=== PATIENT | male | born 2000 | race Caucasian/White ===

== ENCOUNTER 2023-04-19 18:13 | Emergency (ER) | payer OTHER ==
[~2023-04-19] VITALS: Ht 188 cm; Wt 81.6 kg
[2023-04-19 18:31] VITALS: BP 130/52; PULSE 54; RESP 18; TEMP 98.9; O2SAT 97
[2023-04-19 20:21] LABS: BASOPHILS % (AUTO) 0.1 % (0.0-2.0); EOSINOPHILS % (AUTO) 0.5 % (0.0-4.0); HEMATOCRIT 41.5 % (36-52); HEMOGLOBIN 13.8 g/dL (12.0-18.0); LYMPHOCYTES # (AUTO) 1.8 K/uL (2.0-11.5); LYMPHOCYTES % (AUTO) 26.2 % (20.5-51.1); MEAN CORPUSCULAR HEMOGLOBIN 29 pg (27-31); MEAN CORPUSCULAR HGB CONC 33 g/dL (33-37); MEAN CORPUSCULAR VOLUME 87.9 fL (80-94); MONOCYTES # (AUTO) 0.5 K/uL (0.8-1.0); MONOCYTES % (AUTO) 6.7 % (1.7-9.3); NEUTROPHILS # (AUTO) 4.5 K/uL (1.8-7.7); NEUTROPHILS % (AUTO) 66.5 % (42.2-75.2); PLATELET COUNT (AUTO) 235 K/uL (140-450); RED BLOOD CELL COUNT(AUTO) 4.72 MIL/uL (4.20-6.10); RED CELL DISTRIBUTION WIDTH 12.9 % (11.6-13.7); WHITE BLOOD COUNT (AUTO) 6.8 K/uL (4.8-10.8)
[2023-04-19 20:29] LABS: APPEARANCE,URINE SL CLOUDY (CLEAR); BILIRUBIN,URINE NEGATIVE (NEGATIVE); BLOOD, URINE NEGATIVE (NEGATIVE); COLOR,URINE ORANGE (YELLOW); LEUKOCYTE ESTERASE ,URINE NEGATIVE (NEGATIVE); NITRITE, URINE NEGATIVE (NEGATIVE); PROTEIN,URINE NEGATIVE (NEGATIVE); UGLUCOSE NEGATIVE (NEGATIVE); UROBILINOGEN,URINE 0.2 EU/dL (0.2 - 1)
[2023-04-19 20:35] LABS: CALCIUM 9.5 mg/dL (8.5-10.1); CARBON DIOXIDE 27.5 mmol/L (21-32); CREATININE 0.9 mg/dL (0.6-1.3); POTASSIUM 3.5 mmol/L (3.5-5.1)
[2023-04-19 20:48] LABS: ALBUMIN 4.9 g/dL (3.4-5.0); TOTAL BILIRUBIN 0.7 mg/dL (0.0-1.0); TOTAL PROTEIN, SERUM 8.7 g/dL (6.4-8.2)
[2023-04-19] MEDS: KETOROLAC 30 MG/ML VIAL IVP ONE (21:26)
[2023-04-19] MEDS ORDERED: MELO-176 PO (22:00)
[2023-04-19 22:09] VITALS: BP 125/62; PULSE 54; RESP 18; TEMP 98.9; O2SAT 97
== END 2023-04-19 22:09 | disposition home or self-care (01) ==
LOC: MED 18:13
DX: R10.32 Left lower quadrant pain (principal); Z79.899 Other long term (current) drug therapy
CPT/HCPCS: 36415; 80053; 81003; 82150; 85025; 99284; J1885

== ENCOUNTER 2024-03-31 17:50 | Emergency (ER) | payer OTHER ==
[~2024-03-31] VITALS: Ht 188 cm; Wt 80.7 kg
[~2024-03-31 17:50] MED LIST: MELO-176 PO
[2024-03-31 18:03] VITALS: BP 107/58; PULSE 67; RESP 20; TEMP 98.3; O2SAT 99
[2024-03-31] MEDS: IBUPROFEN 600 MG TAB PO ONE (19:00)
[2024-03-31] MEDS ORDERED: ACET-10509 PO (19:06)
[2024-03-31] MEDS ORDERED: OFLO5SOL27 LEFT EAR (19:06)
[2024-03-31 19:16] VITALS: BP 108/62; PULSE 68; RESP 18; TEMP 98.3; O2SAT 99
== END 2024-03-31 19:16 | disposition home or self-care (01) ==
LOC: MED 17:50
DX: H92.02 Otalgia, left ear (principal); R51.9 Headache, unspecified; Z79.899 Other long term (current) drug therapy
CPT/HCPCS: 99283